=== PATIENT | male | born 1955 | race Two or more races ===

== ENCOUNTER 2018-10-19 11:24 | Inpatient (IN) | payer OTHER ==
[~2018-10-19] VITALS: Ht 162.6 cm; Wt 72.1 kg
[~2018-10-19 11:24] MED LIST: CALAN80 MG; DOLOGESIC CAPSU1 CAP PO; ORPH100T PO
[2018-10-19] MEDS ORDERED: GLIPIZIDE XL2.5 MG (11:40)
== END 2018-10-22 12:54 | disposition home or self-care (01) | DRG 291 ==
LOC: ER 11:24 → MEDI 20:22
PROVIDERS: ADMIT Internal Medicine
PROC: 30233N1 Transfusion of Nonautologous Red Blood Cells into Peripheral Vein, Percutaneous Approach (ICD-10-PCS; principal; 2018-10-19)
PROC: B246ZZZ Ultrasonography of Right and Left Heart (ICD-10-PCS; 2018-10-19)
PROC: 4A033R1 Measurement of Arterial Saturation, Peripheral, Percutaneous Approach (ICD-10-PCS; 2018-10-19)
PROC: BW40ZZZ Ultrasonography of Abdomen (ICD-10-PCS; 2018-10-20)
PROC: 02HV33Z Insertion of Infusion Device into Superior Vena Cava, Percutaneous Approach (ICD-10-PCS; 2018-10-20)
DX: I13.0 Hypertensive heart and chronic kidney disease with heart failure and stage 1 through stage 4 chronic kidney disease, or unspecified chronic kidney disease (principal); I50.21 Acute systolic (congestive) heart failure; J93.83 Other pneumothorax; N17.9 Acute kidney failure, unspecified; N18.3 Chronic kidney disease, stage 3 (moderate); D63.1 Anemia in chronic kidney disease; E11.22 Type 2 diabetes mellitus with diabetic chronic kidney disease; E11.65 Type 2 diabetes mellitus with hyperglycemia; Z79.4 Long term (current) use of insulin; E11.21 Type 2 diabetes mellitus with diabetic nephropathy; J98.2 Interstitial emphysema; S92.414A Nondisplaced fracture of proximal phalanx of right great toe, initial encounter for closed fracture

== ENCOUNTER 2018-11-29 09:52 | Outpatient (CLI) | payer OTHER ==
[~2018-11-29 09:52] MED LIST changes: +GLIPIZIDE XL2.5 MG
== END 2018-11-29 10:00 | disposition home or self-care (01) ==
LOC: NUCLEAR 09:52
DX: M79.605 Pain in left leg (principal); M79.604 Pain in right leg; L97.909 Non-pressure chronic ulcer of unspecified part of unspecified lower leg with unspecified severity; I10 Essential (primary) hypertension; E11.65 Type 2 diabetes mellitus with hyperglycemia

== ENCOUNTER 2018-11-30 09:59 | Outpatient (CLI) | payer OTHER | END 2018-11-30 13:00 | disposition home or self-care (01) | LOC: NUCLEAR 09:59 | DX: L97.909 Non-pressure chronic ulcer of unspecified part of unspecified lower leg with unspecified severity (principal); M79.605 Pain in left leg; M79.604 Pain in right leg; I73.9 Peripheral vascular disease, unspecified; E11.65 Type 2 diabetes mellitus with hyperglycemia; I10 Essential (primary) hypertension; Z12.5 Encounter for screening for malignant neoplasm of prostate ==

== ENCOUNTER → 2019-02-03 | Emergency (ER) | payer OTHER ==
[~2019-02-03] VITALS: Ht 162.6 cm; Wt 68.0 kg
== END | disposition home or self-care (01) ==
LOC: ER 11:01
DX: D64.89 Other specified anemias (principal)

== ENCOUNTER 2019-02-23 10:03 | Emergency (ER) | payer OTHER ==
[~2019-02-23] VITALS: Ht 162.6 cm; Wt 68.0 kg
== END 2019-02-24 14:10 | disposition home or self-care (01) ==
LOC: ER 10:03
DX: E11.621 Type 2 diabetes mellitus with foot ulcer (principal); L97.528 Non-pressure chronic ulcer of other part of left foot with other specified severity; I12.9 Hypertensive chronic kidney disease with stage 1 through stage 4 chronic kidney disease, or unspecified chronic kidney disease; D64.89 Other specified anemias; E11.22 Type 2 diabetes mellitus with diabetic chronic kidney disease; N18.3 Chronic kidney disease, stage 3 (moderate)
CPT/HCPCS: 36430 ×2; 86904 ×2; 86922 ×2; P9021 ×2

== ENCOUNTER 2019-03-02 14:34 | Outpatient (CLI) | payer OTHER ==
[2019-03-07] MEDS ORDERED: COZAAR100 MG (08:57)
[2019-03-07] MEDS ORDERED: NORVASC2.5 M1 (08:58)
[2019-03-07] MEDS ORDERED: HYDRALAZINE HCL50 MG (08:58)
== END 2019-03-02 16:32 | disposition home or self-care (01) ==
LOC: LAB 14:34
DX: E11.621 Type 2 diabetes mellitus with foot ulcer (principal)

== ENCOUNTER 2019-03-07 08:22 | Inpatient (IN) | payer OTHER ==
[~2019-03-07] VITALS: Ht 162.6 cm; Wt 68.0 kg
[2019-03-07] MEDS ORDERED: COZAAR100 MG PO (08:57)
[2019-03-07] MEDS ORDERED: NORVASC2.5 M1 PO (08:58)
[2019-03-07] MEDS ORDERED: HYDRALAZINE HCL50 MG PO (08:58)
--- NOTE | 2019-03-07 09:01 | NUR ---
SE RECIBE PTE AMBULANDO ACOMPANADO DE FAMILIAR ALERTA Y ORIENTADO X3. PTE ES REFERIDO POR MD LOC VAZQUEZ "DMII, ANEMIA AND GANGRENE 5TH DEDO DE PIE L=.
--- NOTE | 2019-03-07 10:37 | NUR ---
PACIENTE EVALUADO POR EL CUAL ORDENA TRATAMIENTO MEDICO DEL CUAL SE ORIENTA PACIENTE,EL MISMO REFIERE COMPRENDER. SE COLECTAN MUESTRAS DE LABORATORIOS ANGEL ORDEN MEDICA BAJO MEDIDAS ASEPTICAS, LAS CUALES SON ROTULADAS Y ENVIADAS PARA ANALISIS.
--- NOTE | 2019-03-07 11:05 | NUR ---
CONSULTA PACIENTE CON DR. KOFFI BAKER.
== END 2019-03-14 13:55 | disposition home or self-care (01) | DRG 256 ==
LOC: ER 08:22 → MEDI 18:38
PROVIDERS: Specialist; ADMIT Internal Medicine
PROC: 0Y6Y0Z0 Detachment at Left 5th Toe, Complete, Open Approach (ICD-10-PCS; principal; 2019-03-09 15:30)
PROC: 30233N1 Transfusion of Nonautologous Red Blood Cells into Peripheral Vein, Percutaneous Approach (ICD-10-PCS; 2019-03-12)
DX: E11.52 Type 2 diabetes mellitus with diabetic peripheral angiopathy with gangrene (principal); I96 Gangrene, not elsewhere classified; N18.4 Chronic kidney disease, stage 4 (severe); L97.528 Non-pressure chronic ulcer of other part of left foot with other specified severity; N04.8 Nephrotic syndrome with other morphologic changes; D62 Acute posthemorrhagic anemia; D63.1 Anemia in chronic kidney disease; E11.22 Type 2 diabetes mellitus with diabetic chronic kidney disease; E11.621 Type 2 diabetes mellitus with foot ulcer; E11.21 Type 2 diabetes mellitus with diabetic nephropathy; I13.10 Hypertensive heart and chronic kidney disease without heart failure, with stage 1 through stage 4 chronic kidney disease, or unspecified chronic kidney disease; B96.1 Klebsiella pneumoniae [K. pneumoniae] as the cause of diseases classified elsewhere; B96.7 Clostridium perfringens [C. perfringens] as the cause of diseases classified elsewhere; Z88.8 Allergy status to other drugs, medicaments and biological substances

== ENCOUNTER 2019-05-08 12:25 | Emergency (ER) | payer OTHER ==
[~2019-05-08] VITALS: Ht 162.6 cm; Wt 68.0 kg
[~2019-05-08 12:25] MED LIST changes: +COZAAR100 MG PO; +HYDRALAZINE HCL50 MG PO; +NORVASC2.5 M1 PO
[2019-05-08] MEDS ORDERED: TRULICITY0.75 MG/0. (12:46)
== END 2019-05-08 15:33 | disposition home or self-care (01) ==
LOC: ER 12:25
DX: L03.116 Cellulitis of left lower limb (principal)

== ENCOUNTER 2019-05-10 07:33 | Inpatient (IN) | payer OTHER ==
[~2019-05-10] VITALS: Ht 213.4 cm; Wt 5.0 kg
[~2019-05-10 07:33] MED LIST changes: +TRULICITY0.75 MG/0.
== END 2019-05-15 09:50 | disposition left against medical advice (07) | DRG 570 ==
LOC: ER 07:33 → SEC-K 20:39 → MEDJ 20:53
PROVIDERS: ADMIT Specialist/Technologist, Other Nephrology
PROC: BT4JZZZ Ultrasonography of Kidneys and Bladder (ICD-10-PCS; 2019-05-10)
PROC: 0JBR0ZZ Excision of Left Foot Subcutaneous Tissue and Fascia, Open Approach (ICD-10-PCS; principal; 2019-05-11)
PROC: B246ZZZ Ultrasonography of Right and Left Heart (ICD-10-PCS; 2019-05-11)
PROC: B44HZZZ Ultrasonography of Bilateral Lower Extremity Arteries (ICD-10-PCS; 2019-05-11)
PROC: CD171ZZ Planar Nuclear Medicine Imaging of Gastrointestinal Tract using Technetium 99m (Tc-99m) (ICD-10-PCS; 2019-05-13)
PROC: BW21ZZZ Computerized Tomography (CT Scan) of Abdomen and Pelvis (ICD-10-PCS; 2019-05-14)
DX: L03.032 Cellulitis of left toe (principal); I50.43 Acute on chronic combined systolic (congestive) and diastolic (congestive) heart failure; I13.0 Hypertensive heart and chronic kidney disease with heart failure and stage 1 through stage 4 chronic kidney disease, or unspecified chronic kidney disease; N18.4 Chronic kidney disease, stage 4 (severe); N17.8 Other acute kidney failure; I96 Gangrene, not elsewhere classified; J98.11 Atelectasis; J90 Pleural effusion, not elsewhere classified; I11.0 Hypertensive heart disease with heart failure; E11.621 Type 2 diabetes mellitus with foot ulcer; E11.22 Type 2 diabetes mellitus with diabetic chronic kidney disease; E11.21 Type 2 diabetes mellitus with diabetic nephropathy; E11.51 Type 2 diabetes mellitus with diabetic peripheral angiopathy without gangrene; L97.523 Non-pressure chronic ulcer of other part of left foot with necrosis of muscle; D63.1 Anemia in chronic kidney disease; I70.0 Atherosclerosis of aorta; R31.29 Other microscopic hematuria; N20.0 Calculus of kidney; K31.84 Gastroparesis; B96.89 Other specified bacterial agents as the cause of diseases classified elsewhere; B95.2 Enterococcus as the cause of diseases classified elsewhere; I08.3 Combined rheumatic disorders of mitral, aortic and tricuspid valves; I70.293 Other atherosclerosis of native arteries of extremities, bilateral legs; Z79.4 Long term (current) use of insulin